=== PATIENT | male | born 1995 | race African-American/Black ===

== ENCOUNTER 2020-02-15 18:03 | Emergency (ER) | payer MEDICAID ==
[~2020-02-15] VITALS: Ht 182.9 cm; Wt 90.0 kg
[2020-02-15 18:05] VITALS: BP 143/66
[2020-02-15] MEDS ORDERED: LIDOCAINE 1%/EPI 1:100,000 10 ML VIAL IJ ONE (18:45)
[2020-02-15] MEDS ORDERED: DIPHENHYDRAMINE 50MG/ML VIAL IM ONE (20:00)
[2020-02-15] MEDS ORDERED: HALOPERIDOL LACTATE 5MG/ML VIAL IM ONE (20:00)
[2020-02-15] MEDS ORDERED: LORAZEPAM 2MG/ML CPJ IM ONE (21:45)
== END 2020-02-15 23:26 | disposition home or self-care (01) ==
LOC: ER 18:03
DX: S01.01XA Laceration without foreign body of scalp, initial encounter (principal); F10.129 Alcohol abuse with intoxication, unspecified; Y90.7 Blood alcohol level of 200-239 mg/100 ml; Y00.XXXA Assault by blunt object, initial encounter; Y93.89 Activity, other specified; Y92.488 Other paved roadways as the place of occurrence of the external cause
CPT/HCPCS: 12002; 36415; 70450; 72125; 80320; 96372; 99285; J1200; J1630; J2060; J3490; G0480

== ENCOUNTER 2020-02-22 23:12 | Emergency (ER) | payer MEDICAID ==
[~2020-02-22] VITALS: Ht 190.5 cm; Wt 100.0 kg
[2020-02-22 23:24] VITALS: BP 137/74
== END 2020-02-23 00:02 | disposition left against medical advice (07) ==
LOC: ER 23:12
DX: R68.89 Other general symptoms and signs (principal); Z53.21 Procedure and treatment not carried out due to patient leaving prior to being seen by health care provider

== ENCOUNTER 2021-08-13 02:56 | Emergency (ER) | payer MEDICAID ==
[~2021-08-13] VITALS: Ht 172.7 cm; Wt 85.0 kg
[2021-08-13] MEDS ORDERED: LORAZEPAM 2MG/ML CPJ IV STA (03:23)
[2021-08-13] MEDS ORDERED: SODIUM CHLORIDE 0.9% 1,000 ML IV ONE (03:30)
[2021-08-13 03:50] LABS: BASOPHILS % 0.6 % (0.0-2.0); EOSINOPHILS % 0.2 % (0.0-5.0); HEMATOCRIT. 47.6 % (42.0-52.0); HEMOGLOBIN. 15.8 g/dL (14.0-18.0); MEAN CORPUSCULAR HEMOGLOBIN 32.4 pg (28.0-32.0); MEAN CORPUSCULAR VOLUME 97.2 fL (80.0-94.0); MEAN PLATELET VOLUME 8.4 fl (7.4-10.4); MONOCYTES % 10.9 % (2.0-8.0); NEUTROPHILS % 78.3 % (40.0-76.0); PLATELET 199 x1000/uL (130-400); RED BLOOD CELL COUNT 4.89 mill/uL (4.7-6.1); RED CELL DISTRIBUTION WIDTH 14.4 % (11.6-14.6)
[2021-08-13 03:58] LABS: CHLORIDE 102 mEq/L (98-107)
[2021-08-13 04:03] LABS: ETHANOL BLOOD < 10 mg/dL
[2021-08-13 06:28] LABS: *AMPHETAMINES SCREEN URINE PRESUMTIVE POSITIVE (NEGATIVE); METHADONE URINE SCREEN NEGATIVE (NEGATIVE); OPIATES URINE SCREEN NEGATIVE (NEGATIVE); PHENCYCLIDINE URINE SCREEN NEGATIVE (NEGATIVE)
[2021-08-13 06:29] LABS: *BARBITURATES SCREEN URINE NEGATIVE (NEGATIVE); *BENZODIAZEPINES SCREEN URINE NEGATIVE (NEGATIVE); *COCAINE SCREEN URINE NEGATIVE (NEGATIVE); CANNABINOID URINE SCREEN PRESUMTIVE POSITIVE (NEGATIVE)
[2021-08-13 17:30] VITALS: BP 146/78
== END 2021-08-13 18:36 | disposition home or self-care (01) ==
LOC: ER 02:56
DX: R45.1 Restlessness and agitation (principal); N28.9 Disorder of kidney and ureter, unspecified; F19.10 Other psychoactive substance abuse, uncomplicated; M25.522 Pain in left elbow
CPT/HCPCS: 36415; 70450; 80053; 80305; 80320; 82140; 85025; 96374; 99285; J2060; J7030; G0480

== ENCOUNTER 2022-03-15 12:24 | Emergency (ER) | payer MEDICAID ==
[~2022-03-15] VITALS: Ht 177.8 cm; Wt 90.0 kg
[2022-03-15] MEDS ORDERED: IBUPROFEN 400MG TABLET PO ONE (14:00)
[2022-03-15 14:45] VITALS: BP 110/77
[2022-03-15] MEDS ORDERED: LIDOCAINE HCL/EPINEPHRINE 1%-EPI 1:100,000 20 ML VIAL INFIL ONE (15:30)
== END 2022-03-15 16:26 | disposition left against medical advice (07) ==
LOC: ER 12:37
DX: N63.42 Unspecified lump in left breast, subareolar (principal); M79.89 Other specified soft tissue disorders
CPT/HCPCS: 76642; 93971; 99284

== ENCOUNTER 2022-05-09 11:59 | Emergency (ER) | payer MEDICAID ==
[~2022-05-09] VITALS: Ht 172.7 cm; Wt 68.0 kg
[2022-05-09 12:02] VITALS: BP 143/101
== END 2022-05-09 20:27 | disposition left against medical advice (07) ==
LOC: ER 12:44
DX: Z53.21 Procedure and treatment not carried out due to patient leaving prior to being seen by health care provider (principal); R44.0 Auditory hallucinations; R45.1 Restlessness and agitation

== ENCOUNTER 2022-07-06 08:04 | Emergency (ER) | payer MEDICAID ==
[~2022-07-06] VITALS: Ht 185.4 cm; Wt 89.0 kg
[2022-07-06 10:34] VITALS: BP 132/101
[2022-07-06] MEDS ORDERED: DIPHENHYDRAMINE 50MG/ML VIAL IM STA (11:09)
[2022-07-06] MEDS ORDERED: LORAZEPAM 2MG/ML CPJ IM STA (11:09)
[2022-07-06] MEDS ORDERED: OLANZAPINE 10 MG/VIAL IM STA (11:09)
[2022-07-06 12:57] LABS: CLARITY URINE CLEAR (CLEAR); COLOR URINE YELLOW (YELLOW); KETONES URINE 3+ (NEGATIVE); LEUKOCYTE ESTERASE URINE NEGATIVE (NEGATIVE); NITRITE URINE NEGATIVE (NEGATIVE); OCCULT BLOOD URINE NEGATIVE (NEGATIVE); PH URINE 6.5 (4.5-8.0); PROTEIN URINE 1+ (NEGATIVE); SPECIFIC GRAVITY URINE 1.019 (1.005-1.030)
[2022-07-06 14:17] LABS: *AMPHETAMINES SCREEN URINE PRESUMTIVE POSITIVE (NEGATIVE); *BARBITURATES SCREEN URINE NEGATIVE (NEGATIVE); *BENZODIAZEPINES SCREEN URINE NEGATIVE (NEGATIVE); *COCAINE SCREEN URINE NEGATIVE (NEGATIVE); METHADONE URINE SCREEN NEGATIVE (NEGATIVE); OPIATES URINE SCREEN NEGATIVE (NEGATIVE)
[2022-07-06 14:58] LABS: CANNABINOID URINE SCREEN PRESUMTIVE POSITIVE (NEGATIVE); PHENCYCLIDINE URINE SCREEN NEGATIVE (NEGATIVE)
== END 2022-07-06 12:01 | disposition left against medical advice (07) ==
LOC: ER 08:04
DX: R51.9 Headache, unspecified (principal); R42 Dizziness and giddiness; Z53.21 Procedure and treatment not carried out due to patient leaving prior to being seen by health care provider
CPT/HCPCS: 80305; 81003; 99283

== ENCOUNTER 2023-05-02 21:47 | Emergency (ER) | payer MEDICAID ==
[~2023-05-02] VITALS: Ht 182.9 cm; Wt 100.0 kg
[2023-05-02 22:56] VITALS: TEMP 98.2; O2SAT 99
[2023-05-03] MEDS ORDERED: TOPUD MT (00:48)
[2023-05-03] MEDS ORDERED: KETOROLAC 15MG/ML VIAL IM ONE (01:00)
[2023-05-03 01:26] VITALS: BP 126/86; PULSE 111; RESP 18
== END 2023-05-03 01:40 | disposition home or self-care (01) ==
LOC: ER 21:50
DX: H92.09 Otalgia, unspecified ear (principal); F15.90 Other stimulant use, unspecified, uncomplicated; F20.9 Schizophrenia, unspecified; Z98.890 Other specified postprocedural states
CPT/HCPCS: 99283; 96372; J1885; Z7610